=== PATIENT | female | born 2000 | race African-American/Black ===

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

== ENCOUNTER 2018-06-29 12:26 | Emergency (ER) | payer SELFPAY ==
[~2018-06-29] VITALS: Ht 165.1 cm; Wt 117.9 kg
[~2018-06-29 12:26] MED LIST changes: +ETON1VAG; +HYDR-4226 PO; -HYDR-757 PO
--- OUTSIDE RECORDS SUMMARY | 2018-06-29 12:30 | XMS REPORT ---
Author Author WARREN NOVOA [facility] Address [address] [place] [address] Care Team Providers Care Cad Drafter Name Role Phone NOVOAWARREN Unavailable PROBLEMS Type Condition ICD9-CM Code [id number] Code Onset Dates Condition Status SNOMED Code Problem Dysuria 788.1 Active 21056941 Problem Unspecified viral infection, in conditions classified elsewhere and of unspecified site 079.99 Active 84646358 Problem Major depressive disorder, recurrent episode, unspecified 296.30 Active 62541724 Problem Acute pharyngitis 462 Active 091378929 Problem Urinary tract infection, site not specified 599.0 Active 85605729 Problem Unspecified episodic mood disorder 296.90 Active 777530540 Problem Oppositional defiant disorder 313.81 Active 55375663 ALLERGIES No Known Allergies ENCOUNTERS Encounter Location Date Diagnosis [facility] [address] [address] Jan, BMI 40.0-44.9, adult Z68.41 and Seasonal allergic rhinitis , unspecified trigger J30.2 [facility] [id number] [place] [address] November, [facility] [address] [address] Sep, [facility] [id number] [place] [id number] Sep, Dental caries extending into dentin K02.62 [facility] [address] [address] Sep, [facility] [id number] [place] [id number] Aug, [facility] [address] [facility] [id number] [place] [address] Aug, [facility] [address], [place] [address] 07 Aug, 2017 Dental examination Z01.20 [facility] [address], [place] [address] 07 Aug, 2017 Dental examination Z01.20 [facility] [address], [place] [address] 07 Aug, 2017 [facility] [address] [place] [address] Jun, [facility] [address], [place] [address] Feb, Coughing R05 [facility] [address] [place] [address] Oct, [facility] [address], [place] [address] Oct, [facility] [address] [place] [address] Aug, [facility] [address], [place] [address] Aug, [facility] [address], [place] [address] Jul, [facility] [address], [place] [address] Jul, [facility] [address], [place] [address] Jul, [facility] [address], [place] [address] Jun, [facility] [address], [place] [address] Jun, [facility] [address] [facility] [id number], [place] [address] Jun, [facility] [address] [facility] [id number], [place] [address] Jun, [facility] [address] [facility] [id number] [address] Jul, IMMUNIZATIONS No Known Immunizations SOCIAL HISTORY Never Assessed REASON FOR VISIT sore throat/cough and bilateral ear pain. Son has been sick and was treated for pneumonia, sore throat and cough. 7 month old son was tested for strep throat at the ER and was negative.--WALTER Santoyo PLAN OF CARE Activity Details Follow Up prn Reason: VITAL SIGNS Height 63 in 2018-02-26 Weight 252 lbs 2018-02-26 Temperature 97.4 degrees Fahrenheit 2018-02-26 Heart Rate 72 bpm 2018-02-26 Respiratory Rate 20 2018-02-26 BMI 44.63 kg/m2 2018-02-26 Blood pressure systolic 122 mmHg 2018-02-26 Blood pressure diastolic 84 mmHg 2018-02-26 MEDICATIONS Medication Instructions Dosage Frequency Start Date End Date Duration Status Bactrim DS 800-160 mg 1 tablet by Oral route 2 times per day for 7 day(s) Jul, Not-Taking Tylenol Cold Max 10-5-325 MG/15ML Orally every 4 hrs 30 ml as needed 4h Active Flexeril by Oral route Jul, Not-Taking Tamiflu 75 mg 1 capsule by Oral route 2 times per day for 5 day(s) Jul, Not-Taking RESULTS No Results PROCEDURES No Known procedures INSTRUCTIONS MEDICATIONS ADMINISTERED No Known Medications MEDICAL (GENERAL) HISTORY Type Description Date Medical History 2 mos post Surgical History c section Surgical History cyst removed from left hand Surgical History wisdom teeth excised Hospitalization History c-secton 2016
--- OUTSIDE RECORDS SUMMARY | 2018-06-29 12:30 | XMS REPORT ---
Author Author EITAN CARRANZA [facility] Address [address] [place] [address] Care Team Providers Care Aniline Press Worker Name Role Phone EITAN CARRANZA Unavailable PROBLEMS Type Condition ICD9-CM Code FLB18-OX Code Onset Dates Condition Status SNOMED Code Problem Dysuria 788.1 Active 53738111 Problem Unspecified viral infection, in conditions classified elsewhere and of unspecified site 079.99 Active 28139510 Problem Major depressive disorder, recurrent episode, unspecified 296.30 Active 76906047 Problem Acute pharyngitis 462 Active 076001237 Problem Urinary tract infection, site not specified 599.0 Active 89799619 Problem Unspecified episodic mood disorder 296.90 Active 285964453 Problem Oppositional defiant disorder 313.81 Active 44214318 ALLERGIES No Information ENCOUNTERS Encounter Location Date Diagnosis [facility] [address] [address] November, [facility] [address] [address] Sep, [facility] [id number] [place] [phone] Sep, Dental caries extending into dentin K02.62 [facility] [address] [address] Sep, [facility] [address] [id number] Aug, [facility] [address] [address] Aug, [facility] [id number] [place] [address] 07 Aug, 2017 Dental examination Z01.20 [facility] [address] [facility] [id number] [address] 07 Aug, 2017 Dental examination Z01.20 [facility] [address] [facility] [id number], [place] [address] 07 Aug, 2017 [facility] [address] [facility] [id number] [place] [address] Jun, [facility] [address] [facility] [id number], [place] [address] Feb, Coughing R05 [facility] [address] [place] [address], [place] [address] Oct, [facility] [address] [address] Oct, [facility] [address] [place] [address] Aug, [facility] [id number] [address] Aug, [facility] [address], [place] [address] Jul, [facility] [address], [place] [address] Jul, [facility] [address], [place] [address] Jul, [facility] [address] [facility] [id number], [place] [address] Jun, [facility] [address] [facility] [id number], [place] [address] Jun, [facility] [address] [facility] [id number], [place] [address] Jun, [facility] [id number] [address] Jun, [facility] [address] [facility] [id number] [place] [address] Jul, IMMUNIZATIONS No Known Immunizations SOCIAL HISTORY Never Assessed REASON FOR VISIT ref. from [facility]/int. dent PLAN OF CARE Activity Details Follow Up prn Reason: VITAL SIGNS MEDICATIONS Unknown Medications RESULTS No Results PROCEDURES Procedure Date Ordered Result Body Site LTD ORAL EVALUATION - PROBLEM FOCUS Sep 06, 2017 INTRAORL-PERIAPICAL 1 FILM [id number] Sep 06, 2017 Billing Notes on claim Sep 06, 2017 SCREENING OF A PATIENT Sep 06, 2017 INSTRUCTIONS MEDICATIONS ADMINISTERED No Known Medications MEDICAL (GENERAL) HISTORY Type Description Date Medical History 2 mos post Surgical History c section Surgical History cyst removed from left hand Surgical History wisdom teeth excised Hospitalization History c-secton 2017
--- OUTSIDE RECORDS SUMMARY | 2018-06-29 12:30 | XMS REPORT ---
Author Author ETHAN NIELSEN Organization [facility] Address [address] [place] [address] Care Team Providers Care Contract Administration Coordinator Name Role Phone ETHAN NIELSEN Unavailable PROBLEMS Type Condition ICD9-CM Code [id number] Code Onset Dates Condition Status SNOMED Code Problem Dysuria 788.1 Active 37339935 Problem Unspecified viral infection, in conditions classified elsewhere and of unspecified site 079.99 Active 29544922 Problem Major depressive disorder, recurrent episode, unspecified 296.30 Active 89302694 Problem Acute pharyngitis 462 Active 364247480 Problem Urinary tract infection, site not specified 599.0 Active 13889379 Problem Unspecified episodic mood disorder 296.90 Active 646497359 Problem Oppositional defiant disorder 313.81 Active 71485393 ALLERGIES No Information ENCOUNTERS Encounter Location Date Diagnosis [facility] [address] [address] November, [place] [address] [address] Sep, [facility] [id number] [place] [phone] Sep, Dental caries extending into dentin K02.62 [facility] [address] [address] Sep, [facility] [address] [id number] Aug, [facility] [address] [address] Aug, [facility] [id number] [place] [address] 07 Aug, 2017 Dental examination Z01.20 [facility] [address] [facility] [id number] [address] 07 Aug, 2017 Dental examination Z01.20 [facility] [address] [facility] [id number] [place] [address], [place] [address] 07 Aug, 2017 [facility] [address] [place] [address] 11 Jun, 2017 [facility] [address] [facility] [id number] [place] [address] Feb, Coughing R05 [facility] [address] [place] [address], [place] [address] Oct, [facility] [id number] [place] [address], [place] [address] Oct, [facility] [id number] [place] [address] Aug, [facility] [address] [id number] [place] [address] Aug, [facility] [address] [place] [address], [place] [address] Jul, [facility] [address] [place] [address] Jul, [facility] [address] [address] Jul, [facility] [address] [address] Jun, [facility] [address] [address] Jun, [facility] [address] [address] Jun, [facility] [address] [address] Jun, [facility] [address] [facility] [id number] [place] [address] Jul, IMMUNIZATIONS No Known Immunizations SOCIAL HISTORY Never Assessed REASON FOR VISIT PLAN OF CARE VITAL SIGNS MEDICATIONS Unknown Medications RESULTS No Results PROCEDURES No Known procedures INSTRUCTIONS MEDICATIONS ADMINISTERED No Known Medications MEDICAL (GENERAL) HISTORY Type Description Date Medical History 2 mos post Surgical History c section Surgical History cyst removed from left hand Surgical History wisdom teeth excised Hospitalization History c-secton 2016
--- OUTSIDE RECORDS SUMMARY | 2018-06-29 12:30 | XMS REPORT ---
Author Author javierANGIE Barrios [facility] Address [address] [place] [address] Care Team Providers Care Grant Writer Name Role Phone ANGIE Dixon Unavailable PROBLEMS Type Condition ICD9-CM Code NEM34-RR Code Onset Dates Condition Status SNOMED Code Problem Dysuria 788.1 Active 42247181 Problem Unspecified viral infection, in conditions classified elsewhere and of unspecified site 079.99 Active 59149288 Problem Major depressive disorder, recurrent episode, unspecified 296.30 Active 99370574 Problem Acute pharyngitis 462 Active 836831092 Problem Urinary tract infection, site not specified 599.0 Active 33355067 Problem Unspecified episodic mood disorder 296.90 Active 014749383 Problem Oppositional defiant disorder 313.81 Active 96658743 ALLERGIES No Known Allergies ENCOUNTERS Encounter Location Date Diagnosis [facility] [address] [address] November, [facility] [id number] [place] [address] Sep, [facility] [id number] [place] [address] [id number] Sep, Dental caries extending into dentin K02.62 [facility] [id number] [place] [address]878- 1254 Sep, [facility] [id number] [place] [address] [id number] Aug, [facility] [id number] [place] [address] 0[address]30- 6033 Aug, [facility] [id number] [place] [address] 01528- 3138 07 Aug, 2017 Dental examination Z01.20 [facility] [address] [facility] [id number] [address] Aug, Dental examination Z01.20 [facility] [address] [facility] [id number] [address] 07 Aug, 2017 [facility] [address]00565100[place] [address] Jun, [facility] [address] [facility] [id number] [address] Feb, Coughing R05 [facility] [id number] [place] [address], [place] [address]- [address] Oct, [facility] [id number] [place] [address] 87140- 1668 Oct, [facility] [address] [place] [address] 05133- 9713 Aug, [facility] [address]65100[place] [address] 98[address] Aug, [facility] [address] [place] [address] 63866- 2763 Jul, [facility] [address]65100[place] [address]- 0[address] Jul, [facility] [address]100[place] [address]- 88[address] Jul, [facility] [address] [id number] [address]- 1057 Jun, [facility] [address]65100[place] [address]- 29[address] Jun, [facility] [address]65100[place] [address]- 34[address] Jun, [facility] [address]00565100[place] [address]- 00[address] Jun, [facility] [address] [facility] [id number] [place] [address]- 6[address] Jul, IMMUNIZATIONS No Known Immunizations SOCIAL HISTORY Never Assessed REASON FOR VISIT Dental Restorative PLAN OF CARE Activity Details Follow Up prn Reason: VITAL SIGNS MEDICATIONS Medication Instructions Dosage Frequency Start Date End Date Duration Status Bactrim DS 800-160 mg 1 tablet by Oral route 2 times per day for 7 day(s) Jul, Not-Taking Tamiflu 75 mg 1 capsule by Oral route 2 times per day for 5 day(s) Jul, Not-Taking Flexeril by Oral route Jul, Not-Taking RESULTS No Results PROCEDURES Procedure Date Ordered Result Body Site RESIN COMPOS - 3 SURFACES POSTERIOR October 26, 2017 INSTRUCTIONS MEDICATIONS ADMINISTERED No Known Medications MEDICAL (GENERAL) HISTORY Type Description Date Medical History 2 mos post Surgical History c section Surgical History cyst removed from left hand Surgical History wisdom teeth excised Hospitalization History c-secton 2016
--- OUTSIDE RECORDS SUMMARY | 2018-06-29 12:30 | XMS REPORT ---
Author Author CARLOS JONES [facility] Address [address] [place] [address] Care Team Providers Care Manager Mobile Name Role Phone CARLOS JONES Unavailable PROBLEMS Type Condition ICD9-CM Code JLR85-YV Code Onset Dates Condition Status SNOMED Code Problem Dysuria 788.1 Active 67097472 Problem Unspecified viral infection, in conditions classified elsewhere and of unspecified site 079.99 Active 71634368 Problem Major depressive disorder, recurrent episode, unspecified 296.30 Active 15829848 Problem Acute pharyngitis 462 Active 275278809 Problem Urinary tract infection, site not specified 599.0 Active 29966777 Problem Unspecified episodic mood disorder 296.90 Active 952979065 Problem Oppositional defiant disorder 313.81 Active 00428627 ALLERGIES No Information ENCOUNTERS Encounter Location Date Diagnosis [place] [address] [address] November, [place] [address] [address] Sep, [facility] [id number] [place] [address] [id number] Sep, Dental caries extending into dentin K02.62 [facility] [address] [address] Sep, [facility] [id number] [place] [address] [id number] Aug, [facility] [address] [address] Aug, [facility] [id number] [place] [address] 87147- 5040 Aug, Dental examination Z01.20 [place] [address] [id number] [address] 07 Aug, 2017 Dental examination Z01.20 [facility] [id number] [place] [address] 07 Aug, 2017 [facility] [id number] [place] [address]- 8[address] 11 Jun, 2017 [facility] [address] [facility] [id number] [address] Feb, Coughing R05 [facility] [id number] [place] [address]- 4[address] Oct, [facility] [address]00565100[place] [address]- 8255 Oct, [facility] [address]00565100[place] [address]- 7[address] Aug, [facility] [address]00565100[place] [address]- 6347 Aug, [facility] [address]65100[place], [place] [address]- 8983 Jul, [facility] [address]00565100[place], [place] [address]- 9856 Jul, [facility] [address]00565100[place], [place] [address]- 2[address] Jul, [facility] [address]65100[place], [place] [address]- 5029 Jun, [facility] [address]100[place], [place] [address]- 0791 Jun, [facility] [address] [id number] [address]- 38[address] Jun, [facility] [address] [id number] [address]- 44[address] Jun, [facility] [address] [facility] [id number] [place] [address]- [address] Jul, IMMUNIZATIONS No Known Immunizations SOCIAL HISTORY [...]
--- OUTSIDE RECORDS SUMMARY | 2018-06-29 12:30 | XMS REPORT ---
Author Author javierANGIE Barrios [facility] Address [address] [place] [address] Care Team Providers Care Raw Stock Dyeing Machine Tender Name Role Phone ANGIE Dixon Unavailable PROBLEMS Type Condition ICD9-CM Code RBY78-BZ Code Onset Dates Condition Status SNOMED Code Problem Dysuria 788.1 Active 93717198 Problem Unspecified viral infection, in conditions classified elsewhere and of unspecified site 079.99 Active 98747860 Problem Major depressive disorder, recurrent episode, unspecified 296.30 Active 81168685 Problem Acute pharyngitis 462 Active 467437969 Problem Urinary tract infection, site not specified 599.0 Active 02904374 Problem Unspecified episodic mood disorder 296.90 Active 097392522 Problem Oppositional defiant disorder 313.81 Active 10938510 ALLERGIES No Known Allergies ENCOUNTERS Encounter Location Date Diagnosis [facility] [address] [address] November, [facility] [id number] [place] [address]- 3841 Sep, [facility] [id number] [place] [address] [id number] Sep, Dental caries extending into dentin K02.62 [facility] [id number] [place] [address]85- 2341 Sep, [facility] [id number] [place] [address] [id number] Aug, [facility] [id number] [place] [address]59- 2182 Aug, [facility] [id number] [place] [address] 45961- 7888 07 Aug, 2017 Dental examination Z01.20 [facility] [address] [facility] [id number] [address]- 9[address] Aug, Dental examination Z01.20 [facility] [address] [facility] [facility] [id number] [place] [address]- 57[address] 07 Aug, 2017 [facility] [address]00565100[place] [address]- 0020 Jun, [facility] [address] [facility] [id number] [address] Feb, Coughing R05 [facility] [id number] [place] [address], [place] [address]- 0911 Oct, [facility] [id number] [place] [address] 91150- 2303 Oct, [facility] [address] [place] [address] 72067- 5931 Aug, [facility] [address]65100[place] [address]- 9125 Aug, [facility] [address] [place] [address] 63151- 3973 Jul, [facility] [address]65100[place] [address]- 2767 Jul, [facility] [address]65100[place] [address]- 3793 Jul, [facility] [address] [id number] [address]- 4382 Jun, [facility] [address] [address]- 1761 Jun, [facility] [address]65100[place] [address]- 2662 Jun, [facility] [address]65[address] [address]- 6094 Jun, [facility] [address] [facility] [id number] [place] [address]- 8758 Jul, IMMUNIZATIONS No Known Immunizations SOCIAL HISTORY Never Assessed REASON FOR VISIT broken tooth PLAN OF CARE Activity Details Follow Up prn Reason:#3-MOL VITAL SIGNS Blood pressure systolic 120 mmHg 2017-09-06 Blood pressure diastolic 78 mmHg 2017-09-06 MEDICATIONS Medication Instructions Dosage Frequency Start Date End Date Duration Status Bactrim DS 800-160 mg 1 tablet by Oral route 2 times per day for 7 day(s) Jul, Not-Taking Flexeril by Oral route Jul, Not-Taking Tamiflu 75 mg 1 capsule by Oral route 2 times per day for 5 day(s) Jul, Not-Taking RESULTS No Results PROCEDURES Procedure Date Ordered Result Body Site LTD ORAL EVALUATION - PROBLEM FOCUS Sep 06, 2017 INTRAORL-PERIAPICAL 1 FILM [id number] Sep 06, 2017 INSTRUCTIONS MEDICATIONS ADMINISTERED No Known Medications MEDICAL (GENERAL) HISTORY Type Description Date Medical History 2 mos post Surgical History c section Surgical History cyst removed from left hand Surgical History wisdom teeth excised Hospitalization History c-secton 2016
--- OUTSIDE RECORDS SUMMARY | 2018-06-29 12:30 | XMS REPORT ---
Author Author javierANGIE Barrios [facility] Address [address] [place] [address] Care Team Providers Care Embossing Machine Operator Helper Name Role Phone ANGIE Dixon Unavailable PROBLEMS Type Condition ICD9-CM Code EJZ12-OG Code Onset Dates Condition Status SNOMED Code Problem Dysuria 788.1 Active 41606599 Problem Unspecified viral infection, in conditions classified elsewhere and of unspecified site 079.99 Active 74520022 Problem Major depressive disorder, recurrent episode, unspecified 296.30 Active 76087671 Problem Acute pharyngitis 462 Active 323580499 Problem Urinary tract infection, site not specified 599.0 Active 77792920 Problem Unspecified episodic mood disorder 296.90 Active 336839584 Problem Oppositional defiant disorder 313.81 Active 69373530 ALLERGIES No Information ENCOUNTERS Encounter Location Date Diagnosis [facility] [address] [address] November, [facility] [id number] [place] [address]- 9729 Sep, [facility] [id number] [place] [address] [id number] Sep, Dental caries extending into dentin K02.62 [facility] [id number] [place] [address] 70035- 9587 Sep, [facility] [id number] [place] [address] [phone] Aug, [facility] [address] [address]- 9181 Aug, [facility] [id number] [place] [address] 04703- 9921 07 Aug, 2017 Dental examination Z01.20 [facility] [address] [facility] [id number] [place] [address]- 0602 07 Aug, 2017 Dental examination Z01.20 [facility] [address] [facility] [id number] [place] [address]- 0861 07 Aug, 2017 [facility] [address] [facility] [id number] [place] [address]- 6688 Jun, [facility] [address] [facility] [id number] [place] [address] Feb, Coughing R05 [facility] [address] [place] [address], [place] [address]- 2160 Oct, [facility] [id number] [address]- 4229 Oct, [facility] [address] [place] [address] 76376- 4219 Aug, [facility] [address] [id number] [address]- 6124 Aug, [facility] [address]65[address] [address]- 5498 Jul, [facility] [address]00565100[place] [address]- 3859 Jul, [facility] [address]65[address] [address]- 6438 Jul, [facility] [address] [facility] [id number] [place] [address]- 6395 Jun, [facility] [address] [facility] [id number] [place] [address]- 6169 Jun, [facility] [address] [facility] [id number] [place] [address]- 8575 Jun, [facility] [address] [id number] [address]- 6276 Jun, [facility] [address] [facility] [id number] [place] [address]- 6057 Jul, IMMUNIZATIONS No Known Immunizations SOCIAL HISTORY [...]
--- OUTSIDE RECORDS SUMMARY | 2018-06-29 12:30 | XMS REPORT ---
Author Author MARGOT SELINA [facility] Address [address] [place] [address] Care Team Providers Care Crushing Machine Operator Name Role Phone MARGOTPATRICIA CASTAÑEDAHANY Unavailable PROBLEMS Type Condition ICD9-CM Code INU23-OK Code Onset Dates Condition Status SNOMED Code Problem Dysuria 788.1 Active 83600418 Problem Unspecified viral infection, in conditions classified elsewhere and of unspecified site 079.99 Active 28238989 Problem Major depressive disorder, recurrent episode, unspecified 296.30 Active 89186584 Problem Acute pharyngitis 462 Active 154113776 Problem Urinary tract infection, site not specified 599.0 Active 92182844 Problem Unspecified episodic mood disorder 296.90 Active 674227807 Problem Oppositional defiant disorder 313.81 Active 46176709 ALLERGIES No Information ENCOUNTERS Encounter Location Date Diagnosis [place] [address] [address] November, [place] [address] [address]- 0[address] Sep, [facility] [address] [id number] Sep, Dental caries extending into dentin K02.62 [facility] [address] [address]- 4[address] Sep, [facility] [address] [id number] Aug, [facility] [address] [address]- 40[address] Aug, [facility] [address] [address]- 3841 Aug, Dental examination Z01.20 [facility] [address] [facility] [id number] [address]- 9573 07 Aug, 2017 Dental examination Z01.20 [facility] [address] [facility] [id number] [address]- 6511 07 Aug, 2017 [facility] [address]00565100[place] [address]- 4994 Jun, [facility] [address] [facility] [id number] [place] [address] Feb, Coughing R05 [facility] [id number] [place] [address] 65786- 3046 Oct, [facility] [id number] [place] [address] 79620- 9289 Oct, [facility] [address] [place] [address] 91837- 0699 Aug, [facility] [address]00565100[place] [address]- 8342 Aug, [facility] [id number] [place] [address] 68086- 7150 Jul, [facility] [address]00565100[place] [address]- 8909 Jul, [facility] [address]00565100[place] [address]- 1496 Jul, [facility] [address]00565100[place] [address]- 0108 Jun, [facility] [address]00565100[place] [address]- 8377 Jun, [facility] [address]65100[place] 6045 Jun, [facility] [address]00565100[place] 2220 Jun, [facility] [address] [facility] [id number] [place] [address]- 0158 Jul, IMMUNIZATIONS No Known Immunizations SOCIAL HISTORY [...]
--- OUTSIDE RECORDS SUMMARY | 2018-06-29 12:31 | XMS REPORT ---
Author Author MARGOT SELINA [facility] Address [address] [place] [address] Care Team Providers Care Mechanical Handyman Name Role Phone MARGOTPATRICIA CASTAÑEDAHANY Unavailable PROBLEMS Type Condition ICD9-CM Code KZE59-LN Code Onset Dates Condition Status SNOMED Code Problem Dysuria 788.1 Active 49708362 Problem Unspecified viral infection, in conditions classified elsewhere and of unspecified site 079.99 Active 90213063 Problem Major depressive disorder, recurrent episode, unspecified 296.30 Active 41409353 Problem Acute pharyngitis 462 Active 005841406 Problem Urinary tract infection, site not specified 599.0 Active 93727522 Problem Unspecified episodic mood disorder 296.90 Active 901394566 Problem Oppositional defiant disorder 313.81 Active 05111110 ALLERGIES No Information ENCOUNTERS Encounter Location Date Diagnosis [place] [id number] [address] November, [place] [address] [address]- 1556 Sep, [facility] [address] [id number] Sep, Dental caries extending into dentin K02.62 [facility] [address] [address]- 29[address] Sep, [facility] [address] [id number] Aug, [facility] [address] [address]- 8927 Aug, [facility] [address] [address]- 9621 Aug, Dental examination Z01.20 [facility] [address] [facility] [id number], [place] [address]- 9999 07 Aug, 2017 Dental examination Z01.20 [facility] [address] [facility] [id number], [place] [address]- 1269 07 Aug, 2017 [facility] [address]00565100[place], [place] [address]- 9825 Jun, [facility] [address] [facility] [id number], [place] [address] Feb, Coughing R05 [facility] [id number] [place] [address] 32663- 1188 Oct, [facility] [id number] [place] [address] 82378- 8997 Oct, [facility] [id number] [place] [address] 30628- 2200 Aug, [facility] [address]00565100[place], [place] [address]- 2042 Aug, [facility] [id number] [place] [address] 60866- 5286 Jul, [facility] [address]00565100[place], [place] [address]- 5872 Jul, [facility] [address]00565100[place], [place] [address]- 2270 Jul, [facility] [address]005[address]100[place], [place] [address]- 9769 Jun, [facility] [address]005[address]100[place], [place] [address]- 0422 Jun, [facility] [address] 1836 Jun, [facility] [address] 6375 Jun, [facility] [address] [facility] [id number] [place] [address]- 2118 Jul, IMMUNIZATIONS No Known Immunizations SOCIAL HISTORY [...]
--- OUTSIDE RECORDS SUMMARY | 2018-06-29 12:31 | XMS REPORT ---
Author Author ADA HIGH Organization [facility] Address [address] [place] [address] Care Team Providers Care Store Clerk Cashier Name Role Phone ADA HIGH Unavailable PROBLEMS Type Condition ICD9-CM Code ODE46-FY Code Onset Dates Condition Status SNOMED Code Problem Dysuria 788.1 Active 06324149 Problem Unspecified viral infection, in conditions classified elsewhere and of unspecified site 079.99 Active 19199856 Problem Major depressive disorder, recurrent episode, unspecified 296.30 Active 52546521 Problem Acute pharyngitis 462 Active 296195828 Problem Urinary tract infection, site not specified 599.0 Active 69739781 Problem Unspecified episodic mood disorder 296.90 Active 963094780 Problem Oppositional defiant disorder 313.81 Active 51514944 ALLERGIES No Information ENCOUNTERS Encounter Location Date Diagnosis [facility] [address] [address] November, [facility] [address] [address] Sep, [facility] [id number] [place] [id number] Sep, Dental caries extending into dentin K02.62 [facility] [address] [address] Sep, [facility] [address] [id number] Aug, [facility] [address] [address] Aug, [facility] [id number] [place] [address] Aug, Dental examination Z01.20 [facility] [address] [facility] [id number] [address] 07 Aug, 2017 Dental examination Z01.20 [facility] [address] [facility] [id number] [place] [address], [place] [address] 07 Aug, 2017 [facility] [id number] [place] [address] 11 Jun, 2017 [facility] [address] [facility] [id number] [place] [address] Feb, Coughing R05 [facility] [id number] [place] [address], [place] [address] Oct, [facility] [id number] [place] [address], [place] [address] Oct, [facility] [id number] [place] [address] Aug, [facility] [id number] [place] [address] Aug, [facility] [id number] [place] [address], [place] [address] Jul, [facility] [id number] [place] [address] Jul, [facility] [id number], [place] [address] Jul, [facility] [address] [address] Jun, [facility] [id number], [place] [address] Jun, [facility] [address], [place] [address] Jun, [facility] [address], [place] [address] Jun, [facility] [address] [facility] [id number] [place] [address] Jul, IMMUNIZATIONS No Known Immunizations SOCIAL HISTORY [...]
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
[2018-06-29] MEDS ORDERED: KETOROLAC 60 MG/2 ML VIAL IM ONE (13:45)
[2018-06-29] MEDS ORDERED: ORPHENADRINE 60 MG/2 ML (NORFLEX) AMP IM ONE (13:45)
--- NOTE | 2018-06-29 14:49 | Diagnostic Imaging Report ---
EXAMINATION: Left hip at 2:13 PM. INDICATION: Hip pain. TECHNIQUE: AP and lateral views were obtained. COMPARISON: There are no prior studies available for comparison. FINDINGS: There is no fracture, dislocation, or acute bony abnormality evident. The hip joint is well maintained. The soft tissues are unremarkable. IMPRESSION: 1. There is no evidence for an acute bony abnormality. 2. If clinical concern regarding an underlying abnormality persists, then MRI should be considered for further study. Dictated by: Dictated on workstation # [id number]
--- NOTE | 2018-06-29 14:53 | ED Back Pain ---
General Chief Complaint: Back Problems Stated Complaint: HIP OUT OF PLACE Nursing Triage Note: Pt c/o L side lower back pain that started yesterday. Pt reports "hip is out of place" which is causing pain. Nursing Sepsis Screen: No Definite Risk Source of Information: Patient Exam Limitations: No Limitations History of Present Illness Date Seen by Provider: Jun 29, 2018 Time Seen by Provider: 13:19 Initial Comments Patient is a 18-year-old female who presents to the emergency complaints of left lower back pain and hip pain for the past 2 days. She reports that her hip is been out of place which is causing the pain. She denies injury. She is on cellphone throughout my entire exam. Location: Lumbar Spine, Other (left) Timing/Duration: 1-2 Days Associated Symptoms: lower back pain; No loss of bladder control, No loss of bowel control Allergies and Home Medications Allergies Coded Allergies: No Known Drug Allergies (Unverified , 12/10/10) Patient Home Medication List Home Medication List Reviewed: Yes Review of Systems Constitutional: no symptoms reported, see HPI Musculoskeletal: see HPI, back pain, joint pain (left hip pain) All Other Systems Reviewed Negative Unless Noted: Yes Past Zvvwkti-Xkldos-Puwxsu Hx Past Med/Social Hx: Reviewed Nursing Past Med/Soc Hx Patient Social History Alcohol Use: Denies Use Recreational Drug Use: No Drug of Choice: THC Smoking Status: Former Smoker Type Used: Cigarettes 2nd Hand Smoke Exposure: No Recent Foreign Travel: No Contact w/Someone Who Travel: No Recent Infectious Disease Expo: No Recent Hopitalizations: No Immunizations Up To Date Tetanus Booster (TDap): Less than 5yrs PED Vaccines UTD: Yes Date of Influenza Vaccine: May 23, 2017 Seasonal Allergies Seasonal Allergies: No Past Medical History Surgeries: Yes (wisdom teeth, ) Orthopedic Respiratory: No Currently Using CPAP: No Currently Using BIPAP: No Cardiac: No Neurological: No Headaches /Migraines Reproductive Disorders: No Female Reproductive Disorders: Ovarian Cyst Sexually Transmitted Disease: No Genitourinary: No Gastrointestinal: No Musculoskeletal: No Fractures Endocrine: No HEENT: No Cancer: No Psychosocial: No Integumentary: No Blood Disorders: No Adverse Reaction/Blood Tranf: No Family Medical History Reviewed Nursing Family Hx Arthritis maternal grandmother Asthma G8 BROTHER G8 SISTER Cardiovascular disease 19 FATHER maternal grandmother Congenital heart disease 19 FATHER maternal grandmother Diabetes mellitus 19 FATHER maternal grandmother Hypertension maternal grandmother No Pertinent Family Hx Physical Exam Vital Signs Vital Signs - First Documented 06/29/18 13:19 Temp 98.1 Pulse 70 Resp 18 B/P (MAP) 135/62 (86) Pulse Ox 100 O2 Delivery Room Air Capillary Refill : Less Than 3 Seconds Height, Weight, BMI Height: 5'5.00" Weight: 260lbs. 6.0oz. 117.544208du; 35.15 BMI Method:Stated General Appearance: No Apparent Distress, WD/WN Neck: Full Range of Motion, Normal Inspection, Non Tender, Supple Cardiovascular: Regular Rate, Rhythm, No Edema, No Gallop, No JVD, No Murmur, Normal Peripheral Pulses Respiratory: Chest Non Tender, Lungs Clear, Normal Breath Sounds, No Accessory Muscle Use, No Respiratory Distress, Accessory Muscle Use Extremity: Normal Capillary Refill, Normal Inspection, Normal Range of Motion, Non Tender, No Calf Tenderness, No Pedal Edema, Calf Tenderness, Other Neurologic/Psychiatric: Alert, Oriented x3, Normal Mood/Affect Skin: Normal Color, Warm/Dry Progress/Results/Core Measures Results/Orders My Orders Orders - BERNADETTE WANG Orphenadrine Injection (Norflex Injectio (06/29/18 13:45) Ketorolac Injection (Toradol Injection) (06/29/18 13:45) Hip, Left, 2 Views (06/29/18 13:39) Medications Given in ED Vital Signs/I&O 06/29/1818 13:19 15:05 Temp 98.1 98.1 Pulse 70 70 Resp 18 18 B/P (MAP) 135/62 (86) 135/62 (86) Pulse Ox 100 100 O2 Delivery Room Air Blood Pressure Mean: 86 Progress Progress Note : Time: 14:56 Progress Note Improved pain with medication. She agrees with plans of discharge. Return precautions were given. Diagnostic Imaging Diagonstic Imaging: Xray Plain Films/CT/US/NM/MRI: hip Comments NAME: MANNY BRYAN [facility] REC#: [id number] PHYSICIAN: BERNADETTE WANG CC: BERNADETTE WANG; ELIJAH SILVA MD Page 1 of 1 RADIOLOGY REPORT [place]IA [place] CC: BERNADETTE WANG; ELIJAH SILVA MD Page 1 of 1 RADIOLOGY REPORT NAME: MANNY BRYAN [facility] REC#: [id number] PT STATUS: DEP ER : 2000 PHYSICIAN: BERNADETTE WANG ADMIT DATE: 06/29/18/ER Signed Date of Exam: 06/29/18 HIP, LEFT, 2 VIEWS EXAMINATION: Left hip at 2:13 PM. INDICATION: Hip pain. TECHNIQUE: AP and lateral views were obtained. COMPARISON: There are no prior studies available for comparison. FINDINGS: There is no fracture, dislocation, or acute bony abnormality evident. The hip joint is well maintained. The soft tissues are unremarkable. IMPRESSION: 1. There is no evidence for an acute bony abnormality. 2. If clinical concern regarding an underlying abnormality persists, then MRI should be considered for further study. Dictated by: Dictated on workstation # [id number] Dict: 06/29/18 1440 Trans: 06/30/185 Interpreted by: ELIJAH SILVA MD Electronically signed by: ELIJAH SILVA MD 06/30/185 Reviewed: Reviewed by Nv Departure Impression Primary Impression: Back pain Additional Impression: Left hip pain Disposition: HOME, SELF-CARE Condition: Stable/Unchanged Departure-Patient Inst. Decision time for Depature: 14:56 Referrals: MARCELO DANIELSON MD (PCP/Family) Primary Care Physician Patient Instructions: Low Back Pain (DC) Add. Discharge Instructions: Ice to the sore areas at 20 minute intervals. Tylenol and ibuprofen as needed for pain. Follow-up with her primary care provider within 1 week for recheck. Return back to the emergency room for any worsening symptoms or concerns as needed. All discharge instructions reviewed with patient and/or family. Voiced understanding. Work/School Note: Work Release Form Date Seen in the Emergency Department: Jun 29, 2018 Return to Work: Jul 01, 2018 Restrictions: No Restrictions BERNADETTE WANG Jun 29, 2018 14:53
[2018-06-29 15:05] VITALS: BP 135/62
== END 2018-06-29 15:06 | disposition home or self-care (01) ==
LOC: EDUNIT# 12:26 → ER 12:27
DX: M54.5 Low back pain (principal); M25.552 Pain in left hip; G43.909 Migraine, unspecified, not intractable, without status migrainosus; F12.10 Cannabis abuse, uncomplicated; Z87.891 Personal history of nicotine dependence; Z87.448 Personal history of other diseases of urinary system; Z82.49 Family history of ischemic heart disease and other diseases of the circulatory system
CPT/HCPCS: 73502; 96372

== ENCOUNTER 2019-05-17 21:18 | Emergency (ER) | payer SELFPAY ==
[~2019-05-17] VITALS: Ht 170 cm; Wt 122.7 kg
[2019-05-17] MEDS ORDERED: ASPIRIN 81 MG CHEW (CHILDREN'S ASA) PO ONE (21:30)
--- NOTE | 2019-05-17 21:30 | NUR ---
Pt moved to room #3 per bed availability for cardiac monitoring.
[2019-05-17 21:49] LABS: BASOPHILS % (AUTO) 0 % (0-10); EOSINOPHILS # (AUTO) 0.1 10^3/uL (0.0-0.3); EOSINOPHILS % (AUTO) 1 % (0-10); HEMATOCRIT 40 % (35-52); LYMPHOCYTES # (AUTO) 2.8 X 10^3 (1.0-4.0); LYMPHOCYTES % (AUTO) 27 % (12-44); MEAN CORPUSCULAR HEMOGLOBIN 28 PG (25-34); MEAN CORPUSCULAR HGB CONC 33 G/DL (32-36); MEAN CORPUSCULAR VOLUME 86 FL (80-99); MEAN PLATELET VOLUME 10.7 FL (7.4-10.4); MONOCYTES # (AUTO) 0.5 X 10^3 (0.0-1.0); MONOCYTES % (AUTO) 5 % (0-12); NEUTROPHILS # (AUTO) 7.1 X 10^3 (1.8-7.8); NEUTROPHILS % (AUTO) 68 % (42-75); PLATELET COUNT 231 10^3/uL (130-400); RED CELL DISTRIBUTION WIDTH 13.7 % (10.0-14.5); WHITE BLOOD COUNT 10.5 10^3/uL (4.3-11.0)
[2019-05-17 22:06] LABS: INR 0.9 (0.8-1.4); PROTHROMBIN TIME PATIENT 12.9 SEC (12.2-14.7)
[2019-05-17 22:11] LABS: BILIRUBIN,URINE NEGATIVE (NEGATIVE); CLARITY,URINE CLEAR; COLOR,URINE YELLOW; GLUCOSE, URINE (UA) NEGATIVE (NEGATIVE); KETONES,URINE NEGATIVE (NEGATIVE); LEUKOCYTE ESTERASE ,URINE 3+ (NEGATIVE); NITRITE,URINE NEGATIVE (NEGATIVE); PH,URINE 7 (5-9); PROTEIN,URINE NEGATIVE (NEGATIVE)
[2019-05-17 22:14] LABS: ALANINE AMINOTRANSFERASE 19 U/L (0-55); ALBUMIN 4.5 GM/DL (3.2-4.5); ALKALINE PHOSPHATASE 76 U/L (40-136); AMYLASE 108 U/L (25-125); BILIRUBIN,TOTAL 0.2 MG/DL (0.1-1.0); BUN/CREATININE RATIO 12; CALCIUM 9.1 MG/DL (8.5-10.1); CARBON DIOXIDE 23 MMOL/L (21-32); CHLORIDE 105 MMOL/L (98-107); CREATINE KINASE 145 U/L (29-168); GFR ESTIMATED > 60; GLUCOSE 113 MG/DL (70-105); LIPASE 20 U/L (8-78); MAGNESIUM 1.9 MG/DL (1.6-2.4); POTASSIUM 3.6 MMOL/L (3.6-5.0); SODIUM 139 MMOL/L (135-145); TOTAL PROTEIN 7.9 GM/DL (6.4-8.2)
[2019-05-17 22:25] LABS: RBC,URINE 0-2 /HPF; WBC,URINE 25-50 /HPF
[2019-05-17 22:26] LABS: BACTERIA,URINE FEW /HPF
[2019-05-17 22:29] LABS: AMPHETAMINE SCREEN, URINE NEGATIVE (NEGATIVE); BARBITURATE SCREEN URINE NEGATIVE (NEGATIVE); BENZODIAZEPINES SCREEN URINE NEGATIVE (NEGATIVE); CANNABINOID SCREEN, URINE POSITIVE (NEGATIVE); COCAINE SCREEN URINE NEGATIVE (NEGATIVE); METHADONE STAT NEGATIVE (NEGATIVE); METHAMPHETAMINE SCREEN URINE S NEGATIVE (NEGATIVE); OPIATE SCREEN URINE NEGATIVE (NEGATIVE); OXYCODONE STAT NEGATIVE (NEGATIVE); PROPOXYPHENE STAT NEGATIVE (NEGATIVE); TRICYCLIC ANTIDEPRESSANTS SCRE NEGATIVE (NEGATIVE)
[2019-05-17] MEDS ORDERED: KETOROLAC 30 MG/ML VIAL IVP ONE (23:00)
[2019-05-17] MEDS ORDERED: cefTRIAXone FOR IV USE 1,000 MG in WATER (STERILE) FOR INJECTION 10 ML IV ONE (23:00)
[2019-05-17] MEDS ORDERED: NS 100 ML (IVPB) BAG IV ONE (23:15)
[2019-05-17] MEDS ORDERED: IOHEXOL 350 MG/ML 100 ML (OMNIPAQUE 350) VIAL IV ONE (23:15)
[2019-05-18] MEDS ORDERED: KETO10TA PO (00:16)
[2019-05-18] MEDS ORDERED: PHEN-640 PO (00:16)
[2019-05-18] MEDS ORDERED: NITR-65 PO (00:16)
--- NOTE | 2019-05-18 00:16 | ED Chest Pain ---
General Chief Complaint: Chest Pain Stated Complaint: CHEST PAIN Nursing Triage Note: Pt amb to [facility]3 with c/o lt sided chest discomfort radiating down lt arm. Pt reports discomfort woke her up from a sleep early this morning. Pt states, "my chest feels tight, and I feel like my heart is pounding." Pt reports symtoms of tightness her in chest and SOA. Pt reports family hx MO requiring stent placement. Nursing Sepsis Screen: No Definite Risk Allergies and Home Medications Allergies Coded Allergies: No Known Drug Allergies (Unverified , 12/10/10) Past Bufwori-Ubpuuz-Vmznlk Hx Patient Social History Alcohol Use: Denies Use Recreational Drug Use: Yes Drug of Choice: THC Smoking Status: Former Smoker Type Used: Cigarettes 2nd Hand Smoke Exposure: No Recent Foreign Travel: No Contact w/Someone Who Travel: No Recent Infectious Disease Expo: No Recent Hopitalizations: No Immunizations Up To Date Tetanus Booster (TDap): Less than 5yrs PED Vaccines UTD: Yes Date of Influenza Vaccine: May 23, 2017 Seasonal Allergies Seasonal Allergies: No Past Medical History Surgeries: Yes (wisdom teeth, ) Orthopedic Respiratory: No Currently Using CPAP: No Currently Using BIPAP: No Cardiac: No Neurological: No Headaches /Migraines Reproductive Disorders: No Female Reproductive Disorders: Ovarian Cyst Sexually Transmitted Disease: No Genitourinary: No Gastrointestinal: No Musculoskeletal: No Fractures Endocrine: No HEENT: No Cancer: No Psychosocial: No Integumentary: No Blood Disorders: No Adverse Reaction/Blood Tranf: No Family Medical History Arthritis maternal grandmother Asthma G8 BROTHER G8 SISTER Cardiovascular disease 19 FATHER maternal grandmother Congenital heart disease 19 FATHER maternal grandmother Diabetes mellitus 19 FATHER maternal grandmother Hypertension maternal grandmother No Pertinent Family Hx Physical Exam Vital Signs Vital Signs - First Documented 05/17/19 21:20 Temp 36.8 Pulse 113 Resp 18 B/P (MAP) 142/77 (98) Pulse Ox 100 O2 Delivery Room Air Capillary Refill : Less Than 3 Seconds Height, Weight, BMI Height: 5'5.00" Weight: 260lbs. 6.0oz. [id number]; 42.00 BMI Method:Stated Progress/Results/Core Measures Results/Orders Lab Results Laboratory Tests Test 05/17/19 21:40 05/17/19 21:45 Range/Units White Blood Count 10.5 4.3-11.0 10^3/uL Red Blood Count 4.62 4.35-5.85 10^6/uL Hemoglobin 13.0 11.5-16.0 G/DL Hematocrit 40 35-52 % Mean Corpuscular Volume 86 80-99 FL Mean Corpuscular Hemoglobin 28 25-34 PG Mean Corpuscular Hemoglobin Concent 33 32-36 G/DL Red Cell Distribution Width 13.7 10.0-14.5 % Platelet Count 231 130-400 10^3/uL Mean Platelet Volume 10.7 H 7.4-10.4 FL Neutrophils (%) (Auto) 68 42-75 % Lymphocytes (%) (Auto) 27 12-44 % Monocytes (%) (Auto) 5 0-12 % Eosinophils (%) (Auto) 1 0-10 % Basophils (%) (Auto) 0 0-10 % Neutrophils # (Auto) 7.1 1.8-7.8 X 10^3 Lymphocytes # (Auto) 2.8 1.0-4.0 X 10^3 Monocytes # (Auto) 0.5 0.0-1.0 X 10^3 Eosinophils # (Auto) 0.1 0.0-0.3 10^3/uL Basophils # (Auto) 0.0 0.0-0.1 10^3/uL Prothrombin Time 12.9 12.2-14.7 SEC INR Comment 0.9 0.8-1.4 Activated Partial Thromboplast Time 31 24-35 SEC Sodium Level 139 135-145 MMOL/L Potassium Level 3.6 3.6-5.0 MMOL/L Chloride Level 105 98-107 MMOL/L Carbon Dioxide Level 23 21-32 MMOL/L Anion Gap 11 5-14 MMOL/L Blood Urea Nitrogen 11 7-18 MG/DL Creatinine 0.90 0.60-1.30 MG/DL Estimat Glomerular Filtration Rate > 60 BUN/Creatinine Ratio 12 Glucose Level 113 H 70-105 MG/DL Calcium Level 9.1 8.5-10.1 MG/DL Corrected Calcium 8.7 8.5-10.1 MG/DL Magnesium Level 1.9 1.6-2.4 MG/DL Total Bilirubin 0.2 0.1-1.0 MG/DL Aspartate Amino Transf (AST/SGOT) 17 5-34 U/L Alanine Aminotransferase (ALT/SGPT) 19 0-55 U/L Alkaline Phosphatase 76 40-136 U/L Total Creatine Kinase 145 29-168 U/L Creatine Kinase MB 1.0 <6.6 NG/ML Myoglobin 16.6 10.0-92.0 NG/ML Troponin I < 0.028 <0.028 NG/ML B-Type Natriuretic Peptide 10.1 <100.0 PG/ML Total Protein 7.9 6.4-8.2 GM/DL Albumin 4.5 3.2-4.5 GM/DL Amylase Level 108 25-125 U/L Lipase 20 8-78 U/L Serum Test, Qualitative NEGATIVE NEGATIVE Serum Alcohol < 10 <10 MG/DL Urine Color YELLOW Urine Clarity CLEAR Urine pH 7 5-9 Urine Specific [place] 1.010 L 1.016-1.022 Urine Protein NEGATIVE NEGATIVE Urine Glucose (UA) NEGATIVE NEGATIVE Urine Ketones NEGATIVE NEGATIVE Urine Nitrite NEGATIVE NEGATIVE Urine Bilirubin NEGATIVE NEGATIVE Urine Urobilinogen NORMAL NORMAL MG/DL Urine Leukocyte Esterase 3+ H NEGATIVE Urine RBC (Auto) NEGATIVE NEGATIVE Urine RBC 0-2 /HPF Urine WBC 25-50 H /HPF Urine Squamous Epithelial Cells 10-25 H /HPF Urine Crystals NONE /LPF Urine Bacteria FEW H /HPF Urine Casts NONE /LPF Urine Mucus NEGATIVE /LPF Urine Culture Indicated YES Urine Opiates Screen NEGATIVE NEGATIVE Urine Oxycodone Screen NEGATIVE NEGATIVE Urine Methadone Screen NEGATIVE NEGATIVE Urine Propoxyphene Screen NEGATIVE NEGATIVE Urine Barbiturates Screen NEGATIVE NEGATIVE Ur Tricyclic Antidepressants Screen NEGATIVE NEGATIVE Urine Phencyclidine Screen NEGATIVE NEGATIVE Urine Amphetamines Screen NEGATIVE NEGATIVE Urine Methamphetamines Screen NEGATIVE NEGATIVE Urine Benzodiazepines Screen NEGATIVE NEGATIVE Urine Cocaine Screen NEGATIVE NEGATIVE Urine Cannabinoids Screen POSITIVE H NEGATIVE My Orders Orders - BIANCA BENITO DO Cbc With Automated Diff (05/17/19 21:30) Magnesium (05/17/19 21:30) Chest 1 View, Ap/Pa Only (05/17/19 21:30) Ekg Tracing (05/17/19 21:30) Cardiac Profile 1 (05/17/19 21:30) Comprehensive Metabolic Panel (05/17/19 21:30) Myoglobin Serum (05/17/19 21:30) Protime With Inr (05/17/19 21:30) Partial Thromboplastin Time (05/17/19 21:30) O2 (05/17/19 21:30) Monitor-Rhythm Ecg Trace Only (05/17/19 21:30) Lipid Panel (05/18/19 06:00) Ed Iv/Invasive Line Start (05/17/19 21:30) Creatine Kinase (05/17/19 21:30) Creatine Kinase Mb (05/17/19 21:30) Lipase (05/17/19 21:30) Amylase (05/17/19 21:30) BNP (05/17/19 21:30) Aspirin Chewable Tablet (Baby Aspirin Ch (05/17/19 21:30) Drug Screen Stat (Urine) (05/17/19 21:30) Hcg,Qualitative Serum (05/17/19 21:30) Ua Culture If Indicated (05/17/19 21:30) Alcohol (05/17/19 21:40) Urine Culture (05/17/19 21:45) Ct Angio Chest W (05/17/19 22:51) Ceftriaxone For Iv Use (Rocephin For I (05/17/19 23:00) Ketorolac Injection (Toradol Injection) (05/17/19 23:00) Iohexol Injection (Omnipaque 350 Mg/Ml 1 (05/17/19 23:15) Ns (Ivpb) (Sodium Chloride 0.9% Ivpb Bag (05/17/19 23:15) Medications Given in ED Current Medications Medications Dose Ordered Sig/Júnior Route Start Time Stop Time Status Last Admin Dose Admin Aspirin 324 mg ONCE ONCE PO 05/17/19 21:30 05/17/19 21:33 DC 05/17/19 22:05 324 MG Ceftriaxone Sodium 1000 mg/ Sterile Water 10 ml @ 200 mls/hr ONCE ONCE IV 05/17/19 23:00 05/17/19 23:02 DC 05/18/19 00:09 200 MLS/HR Iohexol 80 ml ONCE ONCE IV 05/17/19 23:15 05/17/19 23:33 DC 05/17/19 23:19 80 ML Ketorolac Tromethamine 30 mg ONCE ONCE IVP 05/17/19 23:00 05/17/19 23:01 DC 05/17/19 23:08 30 MG Sodium Chloride 80 ml ONCE ONCE IV 05/17/19 23:15 05/17/19 23:33 DC 05/17/19 23:19 80 ML Vital Signs/I&O 05/17/19 05/17/19 21:20 21:20 Temp 36.8 Pulse 113 Resp 18 B/P (MAP) 142/77 (98) Pulse Ox 100 O2 Delivery Room Air Room Air Blood Pressure Mean: 98 Departure Impression Primary Impression: Chest wall pain Additional Impression: UTI (urinary tract infection) Disposition: 01 HOME, SELF-CARE Condition: Improved Departure-Patient Inst. Referrals: NO,LOCAL PHYSICIAN (PCP/Family) Primary Care Physician Patient Instructions: Chest Pain That Is Not Caused by the Heart (DC), Costochondritis (DC), Heart Healthy Diet, Urinary Tract Infection, Adult (DC) Add. Discharge Instructions: LOTS OF CLEAR LIQUIDS MOIST HEAT TO CHEST AT 20 MINUTE INTERVALS FOLLOW UP WITH YOUR DR IN 2-3 DAYS FOR FURTHER CARE All discharge instructions reviewed with patient and/or family. Voiced understanding. Scripts Phenazopyridine HCl (Pyridium) 200 Mg Tablet 1 TAB PO TID for BLADDER DISCOMFORT, #15 TAB Prov: BIANCA BENITO DO 05/18/19 Ketorolac Tromethamine (Ketorolac Tromethamine) 10 Mg Tablet 10 MG PO Q6H for Pain, #15 TAB Prov: BIANCA BENITO DO 05/18/19 Nitrofurantoin Monohyd/M-Cryst (Macrobid 100 mg Capsule) 100 Mg Capsule 100 MG PO BID, #20 CAP Prov: BIANCA BENITO DO 05/18/19 BIANCA BENITO DO May 18, 2019 00:16
[2019-05-18 00:35] VITALS: BP 125/86
--- NOTE | 2019-05-18 07:44 | Diagnostic Imaging Report ---
PROCEDURE: CT angiography of the chest with contrast. TECHNIQUE: Multiple contiguous axial images were obtained through the chest after uneventful bolus administration of intravenous contrast. 3D reconstructed CTA MIP acquisitions were also performed. Auto Exposure Controls were utilized during the CT exam to meet ALARA standards for radiation dose reduction. INDICATION: Chest pain and shortness of breath. FINDINGS: There are no primary nodules, masses, or infiltrates. There is no pleural or pericardial fluid. There is no pneumothorax. There is no pathologically enlarged adenopathy in the chest. The thoracic aorta is normal in caliber and without evidence of dissection. There are no filling defects seen within the pulmonary arteries to suggest a pulmonary embolism. The visualized intraabdominal structures are unremarkable. The osseous structures are unremarkable. IMPRESSION: No acute abnormality in the chest. Specifically, there is no evidence of a pulmonary embolism or aortic dissection. Dictated by: Dictated on workstation # [id number]
--- NOTE | 2019-05-18 07:48 | Diagnostic Imaging Report ---
INDICATION: Chest pain FINDINGS: The heart size, mediastinal configuration, and pulmonary vascularity are within normal limits. There is no pleural effusion, pneumothorax, or pneumonia. The osseous structures are unremarkable. IMPRESSION: No acute cardiopulmonary abnormality. Dictated by: Dictated on workstation # [id number]
== END 2019-05-18 00:36 | disposition home or self-care (01) ==
LOC: EDUNIT# 21:18 → ER 21:19
DX: R07.89 Other chest pain (principal); N39.0 Urinary tract infection, site not specified; G43.909 Migraine, unspecified, not intractable, without status migrainosus; Z87.891 Personal history of nicotine dependence; Z82.49 Family history of ischemic heart disease and other diseases of the circulatory system
CPT/HCPCS: 36415; 71045; 71275; 80053; 80306; 80320; 81000; 82150; 82550; 82553; 83690; 83735; 83874; 83880; 84484; 84703; 85025; 85610; 85730; 87088; 93005; 93041

== ENCOUNTER 2020-04-05 16:28 | Emergency (ER) | payer SELFPAY ==
[~2020-04-05] VITALS: Ht 167 cm; Wt 117.0 kg
[~2020-04-05 16:28] MED LIST changes: +KETO10TA PO; +NITR-65 PO; +PHEN-640 PO
[2020-04-05 17:14] LABS: BASOPHILS % (AUTO) 0 % (0-10); EOSINOPHILS % (AUTO) 1 % (0-10); HEMATOCRIT 41 % (35-52); HEMOGLOBIN 13.4 G/DL (11.5-16.0); LYMPHOCYTES # (AUTO) 2.1 X 10^3 (1.0-4.0); LYMPHOCYTES % (AUTO) 36 % (12-44); MEAN CORPUSCULAR HEMOGLOBIN 29 PG (25-34); MEAN CORPUSCULAR HGB CONC 33 G/DL (32-36); MEAN CORPUSCULAR VOLUME 87 FL (80-99); MONOCYTES # (AUTO) 0.2 X 10^3 (0.0-1.0); MONOCYTES % (AUTO) 4 % (0-12); NEUTROPHILS # (AUTO) 3.5 X 10^3 (1.8-7.8); NEUTROPHILS % (AUTO) 60 % (42-75); PLATELET COUNT 194 10^3/uL (130-400); WHITE BLOOD COUNT 5.8 10^3/uL (4.3-11.0)
[2020-04-05 17:22] LABS: ALBUMIN 4.2 GM/DL (3.2-4.5)
[2020-04-05 17:23] LABS: CHLORIDE 106 MMOL/L (98-107); POTASSIUM 3.5 MMOL/L (3.6-5.0); SODIUM 139 MMOL/L (135-145)
[2020-04-05 17:25] LABS: GLUCOSE 113 MG/DL (70-105); TOTAL PROTEIN 7.8 GM/DL (6.4-8.2)
[2020-04-05 17:26] LABS: CARBON DIOXIDE 21 MMOL/L (21-32)
[2020-04-05 17:27] LABS: BILIRUBIN,TOTAL 0.2 MG/DL (0.1-1.0)
[2020-04-05 17:28] LABS: ALKALINE PHOSPHATASE 65 U/L (40-136)
[2020-04-05 17:29] LABS: CREATININE SERUM 0.77 MG/DL (0.60-1.30); GFR ESTIMATED > 60
[2020-04-05 17:30] LABS: BUN/CREATININE RATIO 12
[2020-04-05] MEDS ORDERED: ACETAMINOPHEN 325 MG TABLET PO ONE (17:30)
[2020-04-05] MEDS ORDERED: NS IV 1000 ML 1,000 ML IV SCH (17:30)
[2020-04-05 17:32] LABS: ALANINE AMINOTRANSFERASE 23 U/L (0-55)
[2020-04-05] MEDS ORDERED: RX-ALBUTEROL INHALER (VENTOLIN HFA) 18 GM IH ONE (17:34)
[2020-04-05] MEDS ORDERED: ACETAMINOPHEN 500 MG TAB (TYLENOL) ONE (17:35)
--- NOTE | 2020-04-05 17:35 | ED Cough/URI ---
General Chief Complaint: Cough/Cold/Flu Symptoms Stated Complaint: COVID POSITIVE - CHEST PAIN Source: patient Exam Limitations: no limitations History of Present Illness Date Seen by Provider: Apr 05, 2020 Time Seen by Provider: 17:32 Initial Comments to ER with reports of sharp central chest pain that has been intermittent. She was swabbed for coronavirus on 3 days ago, symptoms began on Monday.she just found out today from her boss that she was COVID positive. She works as a [employer] at [employer]. She has not had any fevers but she does feel out of breath when talking. She is otherwise healthy. Timing/Duration: other (she became concerned about the chest pains that she's been having which are sharp in nature. She became concerned after she found that she was COVID positive earlier today. She's been having these pains for a couple of days.) Severity/Quality: dry cough Associated Symptoms: cough, shortness of breath Allergies and Home Medications Allergies Coded Allergies: No Known Drug Allergies (Unverified , 12/10/10) Home Medications Ketorolac Tromethamine 10 Mg Tablet, 10 MG PO Q6H Prescribed by: BIANCA BENITO on 05/18/1915 Nitrofurantoin Monohyd/M-Cryst 100 Mg Capsule, 100 MG PO BID Prescribed by: BIANCA BENITO on 05/18/1915 Phenazopyridine HCl 200 Mg Tablet, 1 TAB PO TID Prescribed by: BIANCA BENITO on 05/18/1915 Patient Home Medication List Home Medication List Reviewed: Yes Review of Systems Review of Systems Constitutional: see HPI Respiratory: see HPI, cough, short of breath Cardiovascular: see HPI, chest pain Genitourinary: no symptoms reported Musculoskeletal: no symptoms reported Skin: no symptoms reported Psychiatric/Neurological: No Symptoms Reported Past Ajwoejm-Izwlqb-Uehvsz Hx Patient Social History Alcohol Use: Denies Use Recreational Drug Use: Yes Drug of Choice: THC ON REGULAR BASIS Smoking Status: Current Everyday Smoker Type Used: Cigarettes 2nd Hand Smoke Exposure: No Recent Hopitalizations: No Immunizations Up To Date Tetanus Booster (TDap): Less than 5yrs PED Vaccines UTD: Yes Date of Influenza Vaccine: May 23, 2017 Seasonal Allergies Seasonal Allergies: No Past Medical History Surgeries: Yes (WISDOM TEETH REMOVED; X 1) Section Respiratory: No Currently Using CPAP: No Currently Using BIPAP: No Cardiac: No Neurological: Yes Headaches /Migraines Reproductive Disorders: Yes Female Reproductive Disorders: Ovarian Cyst Sexually Transmitted Disease: No Genitourinary: No Gastrointestinal: No Musculoskeletal: Yes Fractures Endocrine: No HEENT: No (WISDOM TEETH REMOVED) Cancer: No Psychosocial: No Integumentary: No Blood Disorders: No Adverse Reaction/Blood Tranf: No Family Medical History Arthritis maternal grandmother Asthma G8 BROTHER G8 SISTER Cardiovascular disease 19 FATHER maternal grandmother Congenital heart disease 19 FATHER maternal grandmother Diabetes mellitus 19 FATHER maternal grandmother Hypertension maternal grandmother No Pertinent Family Hx Physical Exam Vital Signs - First Documented 04/05/20 17:28 Temp 38.3 Pulse 122 Resp 20 B/P (MAP) 144/71 (95) Pulse Ox 98 O2 Delivery Room Air Capillary Refill : Height: 5'5.00" Weight: 260lbs. 6.0oz. 117.070132zd; 42.00 BMI Method:Stated General Appearance: WD/WN, no apparent distress, other (no distress, even when talking oxygen saturation is 97-99% on room air. Lungs are clear with good air movement.) Eyes: Bilateral Eye Normal Inspection, Bilateral Eye PERRL, Bilateral Eye EOMI HEENT: PERRL/EOMI, normal ENT inspection Neck: non-tender, full range of motion Respiratory: lungs clear, normal breath sounds, no respiratory distress, no accessory muscle use Cardiovascular: no murmur, other (little tachycardia with a rate of 105) Gastrointestinal: normal bowel sounds, non tender, soft Extremities: normal range of motion, non-tender Neurologic/Psychiatric: alert, normal mood/affect, oriented x 3 Skin: normal color, warm/dry Progress/Results/Core Measures Suspected Sepsis SIRS Temperature: Pulse: Respiratory Rate: Laboratory Tests 04/05/20 17:02: White Blood Count 5.8 Blood Pressure / Mean: Laboratory Tests 04/05/20 17:02: Creatinine 0.77, Platelet Count 194, Total Bilirubin 0.2 Results/Orders Lab Results Laboratory Tests Test 04/05/20 17:02 Range/Units White Blood Count 5.8 4.3-11.0 10^3/uL Red Blood Count 4.67 4.35-5.85 10^6/uL Hemoglobin 13.4 11.5-16.0 G/DL Hematocrit 41 35-52 % Mean Corpuscular Volume 87 80-99 FL Mean Corpuscular Hemoglobin 29 25-34 PG Mean Corpuscular Hemoglobin Concent 33 32-36 G/DL Red Cell Distribution Width 14.2 10.0-14.5 % Platelet Count 194 130-400 10^3/uL Mean Platelet Volume 11.0 H 7.4-10.4 FL Neutrophils (%) (Auto) 60 42-75 % Lymphocytes (%) (Auto) 36 12-44 % Monocytes (%) (Auto) 4 0-12 % Eosinophils (%) (Auto) 1 0-10 % Basophils (%) (Auto) 0 0-10 % Neutrophils # (Auto) 3.5 1.8-7.8 X 10^3 Lymphocytes # (Auto) 2.1 1.0-4.0 X 10^3 Monocytes # (Auto) 0.2 0.0-1.0 X 10^3 Eosinophils # (Auto) 0.0 0.0-0.3 10^3/uL Basophils # (Auto) 0.0 0.0-0.1 10^3/uL D-Dimer < 0.27 0.00-0.49 UG/ML Sodium Level 139 135-145 MMOL/L Potassium Level 3.5 L 3.6-5.0 MMOL/L Chloride Level 106 98-107 MMOL/L Carbon Dioxide Level 21 21-32 MMOL/L Anion Gap 12 5-14 MMOL/L Blood Urea Nitrogen 9 7-18 MG/DL Creatinine 0.77 0.60-1.30 MG/DL Estimat Glomerular Filtration Rate > 60 BUN/Creatinine Ratio 12 Glucose Level 113 H 70-105 MG/DL Calcium Level 9.0 8.5-10.1 MG/DL Corrected Calcium 8.8 8.5-10.1 MG/DL Total Bilirubin 0.2 0.1-1.0 MG/DL Aspartate Amino Transf (AST/SGOT) 17 5-34 U/L Alanine Aminotransferase (ALT/SGPT) 23 0-55 U/L Alkaline Phosphatase 65 40-136 U/L C-Reactive Protein High Sensitivity 0.17 0.00-0.50 MG/DL Total Protein 7.8 6.4-8.2 GM/DL Albumin 4.2 3.2-4.5 GM/DL Serum Test, Qualitative NEGATIVE NEGATIVE My Orders Orders - MACK,PETER J METAL CHECKER Cbc With Automated Diff (04/05/20 16:42) Hs C Reactive Protein (04/05/20 16:42) Chest 1 View, Ap/Pa Only (04/05/20 16:42) Hcg,Qualitative Serum (04/05/20 16:42) Comprehensive Metabolic Panel (04/05/20 16:42) Ekg Tracing (04/05/20 16:42) Ed Iv/Invasive Line Start (04/05/20 16:42) Ns Iv 1000 Ml (Sodium Chloride 0.9%) (04/05/20 17:30) Acetaminophen Tablet/Caplet (Tylenol T (04/05/20 17:30) Ketorolac Injection (Toradol Injection) (04/05/20 17:45) Rx-Albuterol Inhaler (Rx-Ventolin Hfa) (04/05/20 17:39) Acetaminophen Tablet (Tylenol Tablet) (04/05/20 17:45) Rx-Albuterol Inhaler (Rx-Ventolin Hfa) (04/05/20 17:34) Fibrin Degradation Products (04/05/20 17:40) Acetaminophen Tablet (Tylenol Tablet) (04/05/20 17:35) Medications Given in ED Current Medications Medications Dose Ordered Sig/Júnior Route Start Time Stop Time Status Last Admin Dose Admin Acetaminophen 1,000 mg ONCE ONCE PO 04/05/20 17:45 04/05/20 17:46 DC 04/05/20 17:46 1,000 MG Ketorolac Tromethamine 15 mg ONCE ONCE IVP 04/05/20 17:45 04/05/20 17:46 DC 04/05/20 17:46 15 MG Vital Signs/I&O 04/05/20 04/05/20 04/05/20 04/05/20 17:28 17:28 17:34 17:46 Temp 38.3 37.8 Pulse 122 Resp 20 B/P (MAP) 144/71 (95) Pulse Ox 98 O2 Delivery Room Air Room Air Room Air Capillary Refill : Departure Impression Primary Impression: COVID-19 Disposition: 01 HOME, SELF-CARE Condition: Stable Departure-Patient Inst. Decision time for Depature: 17:34 Referrals: NO,LOCAL PHYSICIAN (PCP/Family) Primary Care Physician Patient Instructions: Coronavirus Disease 2019 (COVID-19) Overview Add. Discharge Instructions: 1. Continue to use Tylenol and ibuprofen for fever control. Drink plenty of fluids. Use inhaler 2 puffs every 4 hours as needed for shortness of breath. [facility]'s guidelines stating quarantined away from family friends and any other individuals, certainly away from work until released by health department. Work/School Note: Work Release Form Date Seen in the Emergency Department: Apr 05, 2020 Return to Work: Apr 05, 2020 Restrictions: Need Release from Doctor DANIEL MACK APRN Apr 05, 2020 17:35
[2020-04-05] MEDS ORDERED: RX-ALBUTEROL INHALER (VENTOLIN HFA) 18 GM IH STA (17:39)
[2020-04-05] MEDS ORDERED: KETOROLAC 30 MG/ML VIAL IVP ONE (17:45)
[2020-04-05] MEDS ORDERED: ACETAMINOPHEN 500 MG TAB (TYLENOL) PO ONE (17:45)
--- NOTE | 2020-04-05 17:59 | Diagnostic Imaging Report ---
CHEST 1 VIEW, AP/PA ONLY Indication: Cough Comparison: 05/17/2019 Findings: No focal airspace disease in the visualized lungs. Please note that the posterior lower lobes are poorly evaluated by portable radiography. No pleural effusion or pneumothorax. Normal cardiomediastinal silhouette. Impression: 1. No acute cardiopulmonary process by portable radiography. Dictated by: Dictated on workstation # [id number]
[2020-04-05 18:37] VITALS: BP 135/81
== END 2020-04-05 18:38 | disposition home or self-care (01) ==
LOC: EDUNIT# 16:28 → ER 16:29
DX: U07.1 COVID-19 (principal); F17.210 Nicotine dependence, cigarettes, uncomplicated; Z82.49 Family history of ischemic heart disease and other diseases of the circulatory system
CPT/HCPCS: 36415; 71045; 80053; 84703; 85025; 85379; 86141